=== PATIENT | female | born 1955 | race Caucasian/White ===

== ENCOUNTER 2024-12-13 13:55 | Emergency (ER) | payer MEDICARE, OTHER ==
[~2024-12-13] VITALS: Ht 167.6 cm; Wt 70.0 kg
[2024-12-13 13:59] VITALS: TEMP 37; O2SAT 95
[2024-12-13] MEDS ORDERED: TRANEXAMIC ACID 1,000MG/10ML IV ONE (14:15)
[2024-12-13 14:29] LABS: BASOPHILS % 0.6 % (0.0-2.0); EOSINOPHILS % 3.3 % (0.0-5.0); HEMATOCRIT. 43.5 % (36.0-48.0); HEMOGLOBIN. 13.9 g/dL (12.0-16.0); LYMPHOCYTES % 20.3 % (20.0-50.0); MEAN PLATELET VOLUME 7.7 fl (7.4-10.4); MONOCYTES % 7.7 % (2.0-8.0); NEUTROPHILS % 68.1 % (40.0-76.0); PLATELET 277 x1000/uL (130-400); RED BLOOD CELL COUNT 5.03 mill/uL (4.2-5.4); RED CELL DISTRIBUTION WIDTH 15.4 % (11.6-14.6)
[2024-12-13 14:37] LABS: INR 1.0
[2024-12-13 14:40] LABS: CREATININE 0.8 mg/dL (0.6-1.0)
[2024-12-13 14:41] LABS: UREA NITROGEN BLOOD 14 mg/dL (9-23)
[2024-12-13 14:42] LABS: ASPARTATE AMINOTRANSFERASE 18 IU/L (<34)
[2024-12-13 14:43] LABS: BILIRUBIN DIRECT 0.6 mg/dL (<=3.0); BILIRUBIN TOTAL 1.7 mg/dL (0.1-1.0); PROTEIN TOTAL 7.9 g/dL (6.0-8.3)
[2024-12-13 15:03] LABS: CLARITY URINE CLOUDY (CLEAR); COLOR URINE RED (YELLOW); GLUCOSE URINE 3+ (NEGATIVE); KETONES URINE NEGATIVE (NEGATIVE); LEUKOCYTE ESTERASE URINE TRACE (NEGATIVE); NITRITE URINE NEGATIVE (NEGATIVE); OCCULT BLOOD URINE 3+ (NEGATIVE); PH URINE 5.5 (4.5-8.0); PROTEIN URINE 3+ (NEGATIVE); SPECIFIC GRAVITY URINE 1.016 (1.005-1.030); UROBILINOGEN URINE 0.2 E.U./dL (0.2-1.0)
[2024-12-13 15:27] LABS: RBC URINE TNTC /hpf (0-2); SQUAMOUS EPITHELIAL CELL URINE RARE /lpf (RARE/1+)
[2024-12-13 15:28] LABS: BACTERIA URINE TRACE
[2024-12-13] MEDS: MORPHINE SULFATE 2 MG/ML INJ (NOT FOR IM USE) IV ONE (16:10)
[2024-12-13] MEDS: SODIUM CHLORIDE 0.9% 1,000 ML IV ONE (16:10)
[2024-12-13] MEDS: CEFTRIAXONE 1GM/50ML 50 ML IV SCH (16:10)
[2024-12-13] MEDS: TRANEXAMIC ACID 1000MG PREMIX 100 ML IV SCH (16:19)
[2024-12-13] MEDS ORDERED: IBUP-2030 MT (16:43)
[2024-12-13] MEDS: KETOROLAC 30MG/ML VIAL IV SCH (17:10)
[2024-12-13 17:40] VITALS: BP 118/63; PULSE 78; RESP 16; O2SAT 100
== END 2024-12-13 17:44 | disposition home or self-care (01) ==
LOC: ER 14:11
DX: R10.32 Left lower quadrant pain (principal); R10.31 Right lower quadrant pain; E11.9 Type 2 diabetes mellitus without complications; E78.00 Pure hypercholesterolemia, unspecified; Z79.899 Other long term (current) drug therapy
CPT/HCPCS: 99285; 74176; 96365; 76830; 76856; 96375; 80076; 80048; 81003; 83690; 85025; 85610; 85730; 86850; 86900; 86901; 36415; 96368; J1885; J0696; J7030; 96367